=== PATIENT | female | born 1995 | race American Indian/Alaskan Native ===

== ENCOUNTER 2016-08-27 13:55 | Emergency (ER) | payer OTHER ==
[2016-08-27 13:56] VITALS: BMI 25.8
[2016-08-27 14:16] VITALS: RESP 18; TEMP 98.1; O2SAT 100
[2016-08-27] MEDS ORDERED: Dexamethasone 4 mg/1 ml IM STA (15:05)
[2016-08-27] MEDS ORDERED: Penicillin G Benzathine 1.2 Mill Unit/2 ml Syr IM ONE ×2 (15:13→15:33)
[2016-08-27] MEDS ORDERED: Dexamethasone 4 mg/1 ml ONE (15:32)
--- NOTE | 2016-08-27 15:35 | C.PDOC ---
History Of Present Illness 20 y/o female presents to the ED with complains of throat pain and pain with swallowing for the past few days. Pt took 1-2 left over tabs of amoxicillin. Pt is requesting "the shot" of PCN. Pt also reports fever. Denies difficulty swallowing, SOB, cough, congestion or any other complaints. Time Seen by Provider: 08/27/16 14:39 Chief Complaint (Nursing): ENT Problem History Per: Patient History/Exam Limitations: None Onset/Duration Of Symptoms: Days Current Symptoms Are (Timing): Still Present Symptoms Have Been: Continuous Severity: Moderate Anticoagulant/Antiplatlet Use?: No Past Medical History Reviewed: Historical Data, Nursing Documentation, Vital Signs Vital Signs: Last Vital Signs Temp 98.1 F 08/27/16 14:13 Pulse 65 08/27/16 15:52 Resp 18 08/27/16 15:52 BP 135/67 08/27/16 15:52 Pulse Ox 100 08/27/16 15:52 Surgical History: Appendectomy Family History: States: Unknown Family Hx - Social History Hx Alcohol Use: Yes Hx Substance Use: Yes (marijuana) Review Of Systems Except As Marked, All Systems Reviewed And Found Negative. Constitutional: Positive for: Fever ENT: Positive for: Throat Pain. Negative for: Nose Congestion Respiratory: Negative for: Cough, Shortness of Breath Gastrointestinal: Negative for: Vomiting, Diarrhea Physical Exam - Physical Exam Appears: Non-toxic, No Acute Distress Skin: Warm, Dry, No Rash Head: Atraumatic, Normacephalic Eye(s): bilateral: Normal Inspection, EOMI Ear(s): Bilateral: Normal Nose: Normal Oral Mucosa: Moist, No Drooling Throat: Erythema, Exudate, Other ((+) b/l moderate tonsillar swelling. (-) uvula midline) Neck: Normal ROM, Supple Lymphatic: Adenopathy (submandibular) Chest: Symmetrical Cardiovascular: Rhythm Regular, No Murmur Respiratory: Normal Breath Sounds, No Rales, No Rhonchi, No Wheezing Extremity: Bilateral: Atraumatic Neurological/Psych: Oriented x3 ED Course And Treatment O2 Sat by Pulse Oximetry: 100 (on room air) Pulse Ox Interpretation: Normal Progress Note: No rapid strep ordered secondary to patient taking abx. On re- evaluation, pt is afebrile, tolerating po. NO difficulty breathing or swallowing. Instructed patient to follow up with PMD in 3-4 days if symptoms persist. Disposition - Disposition Referrals: Dat Wilson MD [Staff Provider] - Disposition: HOME/ ROUTINE Disposition Time: 15:34 Condition: STABLE Additional Instructions: Follow up with primary medical doctor in 1-3 days without fail for further evaluation. Take medications as prescribed. Return to the emergency department at any time if symptoms persist or worsen. Prescriptions: Ibuprofen [Motrin] 600 mg PO Q6 PRN #20 tab PRN Reason: Pain, Mild (1-3) Instructions: Tonsillitis (ED) - Clinical Impression Clinical Impression: Tonsillitis - PA / [employer] / Resident Statement MD/DO has reviewed & agrees with the documentation as recorded. - Scribe Statement The provider has reviewed the documentation as recorded by the Mellyibvinicius Mendes All medical record entries made by the Pita were at my direction and personally dictated by me. I have reviewed the chart and agree that the record accurately reflects my personal performance of the history, physical exam, medical decision making, and the department course for this patient. I have also personally directed, reviewed, and agree with the discharge instructions and disposition.
[2016-08-27 15:53] VITALS: BP 135/67; PULSE 65
== END 2016-08-27 15:53 | disposition home or self-care (01) ==
LOC: C.ER 13:55
DX: J03.90 Acute tonsillitis, unspecified (principal)
CPT/HCPCS: 96372; 99283; J0561; J1100